=== PATIENT | female | born 1970 | race Caucasian/White ===

== ENCOUNTER 2017-04-30 08:55 | Emergency (ER) | payer OTHER ==
[~2017-04-30] VITALS: Ht 157.5 cm; Wt 61.4 kg
[2017-04-30] MEDS ORDERED: CYCL5TAB PO (09:41)
[2017-04-30] MEDS ORDERED: DETR1TAB4 PO (09:41)
[2017-04-30] MEDS ORDERED: LISI10TA4 PO (09:41)
[2017-04-30] MEDS ORDERED: EFFE150C PO (09:41)
[2017-04-30] MEDS ORDERED: MOBI15TA PO (09:41)
[2017-04-30] MEDS ORDERED: VITA500046 PO (09:41)
[2017-04-30] MEDS ORDERED: MULT1TAB10 PO (09:41)
[2017-04-30] MEDS ORDERED: HYDR-3716 PO (09:41)
[2017-04-30] MEDS ORDERED: TOPA100T12 PO (09:41)
[2017-04-30] MEDS ORDERED: PREG50CA PO (09:41)
--- NOTE | 2017-04-30 10:06 | REP ---
CT Head without contrast HISTORY: Confusion COMPARISON: None There is no intraparenchymal hemorrhage, acute infarct, mass or midline shift. The ventricular system is normal in appearance. There is no extra cerebral collection. There is no fracture. The visualized sinuses are clear. IMPRESSION: There is no intracranial lesion. Signed by Joel Miller MD 04/30/2017 09:57 A
[2017-04-30 10:34] LABS: BASO % 0.1 % (0.0-1.0); EOS % 0.1 % (0.0-3.0); IMMATURE GRANULOCYTE % 0.5 % (0-0); LYMPH % 41.7 % (24.0-44.0); MEAN CORPUSCULAR HEMOGLOBIN 29.7 pg (27.0-33.0); MEAN CORPUSCULAR HGB CONC 33.6 g/dl (32.0-36.5); MEAN CORPUSCULAR VOLUME 88.3 fl (80.0-96.0); MONO # 0.4 10^3/uL (0.0-0.8); MONO % 4.5 % (0.0-5.0); NEUTROPHILS # 5.1 10^3/uL (1.8-7.7); NEUTROPHILS % 53.1 % (36.0-66.0); PLATELET COUNT, AUTOMATED 245 10^3/uL (150-450); WHITE BLOOD COUNT 9.7 10^3/uL (4.0-10.0)
[2017-04-30 10:56] LABS: ANION GAP 7 MEQ/L (8-16); BLOOD UREA NITROGEN 10 MG/DL (7-18); CALCIUM LEVEL 9.4 MG/DL (8.5-10.1); CARBON DIOXIDE LEVEL 24 MEQ/L (21-32); CHLORIDE LEVEL 108 MEQ/L (98-107); CREATININE FOR GFR 0.47 MG/DL (0.55-1.02); GLOMERULAR FILTRATION RATE > 60.0 (>58); GLUCOSE, FASTING 94 MG/DL (70-105); POTASSIUM SERUM 4.5 MEQ/L (3.5-5.1); SODIUM LEVEL 139 MEQ/L (136-145)
[2017-04-30] MEDS ORDERED: TOPA50TA8 PO (12:03)
[2017-04-30 14:10] VITALS: BP 111/63
--- NOTE | 2017-05-01 09:17 | ECGEPIP ---
Stationary ECG Study [facility] - ED Test Date: 2017-04-30 Pat Name: REY REYEZ Department: Room: - Gender: F [employer]: sita : 1970 Requested By: Christopher Ochoa Order Number: [id number] Reading MD: Sveta Farr Measurements Intervals [place] Rate: 89 P: 35 MO: 130 QRS: 82 QRSD: 100 T: 14 QT: 367 QTc: 447 Interpretive Statements SINUS RHYTHM NO PRIOR FOR COMPARISON Electronically Signed On 05-01-2017 9:17:18 EDT by Sveta Farr
== END 2017-04-30 14:11 | disposition home or self-care (01) ==
LOC: M ED 08:55 → EDBD 08:55 → M ED 14:11
DX: R20.2 Paresthesia of skin (principal); T50.905A Adverse effect of unspecified drugs, medicaments and biological substances, initial encounter; I10 Essential (primary) hypertension; F33.9 Major depressive disorder, recurrent, unspecified; F17.210 Nicotine dependence, cigarettes, uncomplicated; Z79.899 Other long term (current) drug therapy

== ENCOUNTER 2018-03-23 23:15 | Emergency (ER) | payer OTHER ==
[2018-03-24] MEDS: NS 1,000 ML IV ×2 (01:00→03:15)
[2018-03-24 01:17] LABS: ANION GAP 7 MEQ/L (8-16); BLOOD UREA NITROGEN 12 MG/DL (7-18); CALCIUM LEVEL 9.5 MG/DL (8.5-10.1); CARBON DIOXIDE LEVEL 29 MEQ/L (21-32); CHLORIDE LEVEL 105 MEQ/L (98-107); CPK CREATINE PHOSPHOKINASE 137 U/L (26-192); CREATININE FOR GFR 0.88 MG/DL (0.55-1.30); GLOMERULAR FILTRATION RATE > 60.0 (>58); GLUCOSE, FASTING 143 MG/DL (70-100); POTASSIUM SERUM 4.1 MEQ/L (3.5-5.1); SODIUM LEVEL 141 MEQ/L (136-145); TROPONIN I < 0.02 NG/ML (< 0.10)
[2018-03-24 01:23] LABS: MB/CK RELATIVE INDEX 2.18 (< OR =4)
[2018-03-24 01:25] LABS: ETHYL ALCOHOL (ETHANOL) < 0.003 % (0.000-0.010)
[2018-03-24 01:37] LABS: BASO # 0.1 10^3/uL (0.0-0.2); BASO % 0.4 % (0.0-1.0); EOS % 0.1 % (0.0-3.0); HEMOGLOBIN 13.8 g/dl (12.0-15.5); IMMATURE GRANULOCYTE % 1.3 % (0-3.0); LYMPH # 4.4 10^3/uL (1.5-4.5); LYMPH % 31.3 % (24.0-44.0); MEAN CORPUSCULAR HEMOGLOBIN 29.3 pg (27.0-33.0); MEAN CORPUSCULAR HGB CONC 32.9 g/dl (32.0-36.5); MEAN CORPUSCULAR VOLUME 89.2 fl (80.0-96.0); MONO # 0.6 10^3/uL (0.0-0.8); MONO % 4.5 % (0.0-5.0); NEUTROPHILS # 8.8 10^3/uL (1.8-7.7); NEUTROPHILS % 62.4 % (36.0-66.0); PLATELET COUNT, AUTOMATED 206 10^3/uL (150-450); RED BLOOD COUNT 4.71 10^6/uL (4.00-5.40); RED CELL DISTRIBUTION WIDTH 12.9 % (11.5-14.5); WHITE BLOOD COUNT 14.1 10^3/uL (4.0-10.0)
[2018-03-24 02:50] LABS: BEDSIDE GLUCOSE 161 MG/DL (70-105)
[2018-03-24 04:02] LABS: AMPHETAMINES LEVEL URINE NEGATIVE (NEGATIVE); BARBITURATES URINE NEGATIVE (NEGATIVE); BENZODIAZEPINES URINE NEGATIVE (NEGATIVE); CANNABINOIDS URINE POSITIVE (NEGATIVE); COCAINE METABOLITE URINE NEGATIVE (NEGATIVE); METHADONE URINE NEGATIVE (NEGATIVE); OPIATES URINE POSITIVE (NEGATIVE); PHENCYCLIDINE URINE NEGATIVE (NEGATIVE)
[2018-03-24 05:10] LABS: LACTIC ACID SEPSIS PROTOCOL 0.5 MMOL/L (0.4-2.0)
== END 2018-03-24 05:54 | disposition home or self-care (01) ==
LOC: M ED 23:15
DX: R55 Syncope and collapse (principal); Z72.0 Tobacco use; Z79.899 Other long term (current) drug therapy; Z88.2 Allergy status to sulfonamides; Z88.8 Allergy status to other drugs, medicaments and biological substances
CPT/HCPCS: 70450

== ENCOUNTER → 2018-03-31 | Outpatient (CLI) | payer OTHER ==
[2018-03-31 08:36] LABS: HEMATOCRIT 42.7 % (36.0-47.0); HEMOGLOBIN 13.9 g/dl (12.0-15.5); MEAN CORPUSCULAR HEMOGLOBIN 29.6 pg (27.0-33.0); MEAN CORPUSCULAR HGB CONC 32.6 g/dl (32.0-36.5); MEAN CORPUSCULAR VOLUME 90.9 fl (80.0-96.0); PLATELET COUNT, AUTOMATED 208 10^3/uL (150-450); RED CELL DISTRIBUTION WIDTH 13.3 % (11.5-14.5); WHITE BLOOD COUNT 8.8 10^3/uL (4.0-10.0)
[2018-03-31 09:07] LABS: ESTIMATED AVERAGE GLUCOSE 120 MG/DL (60-110); HEMOGLOBIN A1c 5.8 %
[2018-03-31 09:27] LABS: ALBUMIN 3.9 GM/DL (3.2-5.2); ALKALINE PHOSPHATASE 75 U/L (45-117); ALT/SGPT 23 U/L (12-78); ANION GAP 8 MEQ/L (8-16); AST/SGOT 14 U/L (7-37); BILIRUBIN,TOTAL 0.2 MG/DL (0.2-1.0); BLOOD UREA NITROGEN 12 MG/DL (7-18); CALCIUM LEVEL 9.3 MG/DL (8.5-10.1); CARBON DIOXIDE LEVEL 28 MEQ/L (21-32); CHLORIDE LEVEL 109 MEQ/L (98-107); CHOLESTEROL LEVEL 241 MG/DL (<200); CHOLESTEROL RISK RATIO 3.825 (<5); CREATININE FOR GFR 0.69 MG/DL (0.55-1.30); GLOMERULAR FILTRATION RATE > 60.0 (>58); GLUCOSE, FASTING 92 MG/DL (70-100); HDL CHOLESTEROL 63 MG/DL (>40); NON-HDL-C 178 MG/DL; SODIUM LEVEL 145 MEQ/L (136-145); TOTAL PROTEIN 6.9 GM/DL (6.4-8.2); TRIGLYCERIDES LEVEL 95 MG/DL (<150)
[2018-03-31 09:32] LABS: TOTAL 25(OH) VITAMIN D 58.4 NG/ML (30.0-100.0)
== END ==
LOC: M RAD 08:14
DX: R53.83 Other fatigue (principal); D64.9 Anemia, unspecified; R55 Syncope and collapse; R51 Headache
CPT/HCPCS: 70450

== ENCOUNTER 2018-12-26 10:37 | Observation (INO) | payer OTHER ==
[~2018-12-26] VITALS: Ht 154.9 cm; Wt 59.1 kg
[~2018-12-26 10:37] MED LIST: CYCL5TAB PO; DETR1TAB5 PO; EFFE150C2 PO; HYDR-3716 PO; LISI10TA4 PO; MOBI15TA PO; MULT1TAB10 PO; PREG50CA PO; TOPA100T12 PO; TOPA50TA8 PO; VITA500046 PO
[2018-12-26] MEDS ORDERED: FENT12DI8 TD (10:52)
[2018-12-26] MEDS ORDERED: AMOX500C PO (10:52)
[2018-12-26] MEDS ORDERED: BACL10TA2 PO (10:52)
[2018-12-26] MEDS ORDERED: ALAV10TA4 (10:52)
[2018-12-26] MEDS ORDERED: ISOVUE-370 76% 100ML VIAL (Q9967) As Ordered ONE (11:41)
[2018-12-26 11:43] LABS: HEMATOCRIT 41.1 % (36.0-47.0); HEMOGLOBIN 13.5 g/dl (12.0-15.5); MEAN CORPUSCULAR HEMOGLOBIN 29.6 pg (27.0-33.0); MEAN CORPUSCULAR HGB CONC 32.8 g/dl (32.0-36.5); MEAN CORPUSCULAR VOLUME 90.1 fl (80.0-96.0); PLATELET COUNT, AUTOMATED 222 10^3/uL (150-450); RED BLOOD COUNT 4.56 10^6/uL (4.00-5.40); WHITE BLOOD COUNT 14.2 10^3/uL (4.0-10.0)
[2018-12-26 12:11] LABS: ERYTHROCYTE SEDIMENTATION RATE 42 mm/hr (0-20)
[2018-12-26] MEDS ORDERED: NS 1,000 ML IV ONE (12:15)
[2018-12-26] MEDS ORDERED: AMPICILLIN SOD/SULBACTAM SOD 3 GM in D5W MINI-BAG PLUS 100 ML IV STA (12:35)
--- NOTE | 2018-12-26 12:44 | REP ---
CT NECK WITH CONTRAST: HISTORY: Rule out abscess. CONTRAST: Isovue-370, 75 mL There is soft tissue thickening along the buccal surface of the right maxilla and body of the right mandible. This is consistent with a phlegmon. There is thickening of the right platysma muscle. Stranding is present in the overlying subcutaneous tissue and in the right submandibular space. These findings are consistent with edema. The naso- and hypopharynx, larynx and subglottic trachea are normal in appearance. The salivary glands are normal in size and density. A 7 mm hypodensity is present in the right thyroid lobe. This most likely represents a cyst. The left thyroid lobe is normal in size and density. Small lymph nodes less than 1 cm in size are present in the internal jugular chains, posterior triangles, submandibular and submental areas. Atherosclerotic calcification is present at the left carotid bifurcation. The patient is status post C3 to C7 anterior and posterior spinal fusion. Metal hardware and bone graft material are present. Degenerative change is present in the cervical spine. There is no subluxation. The lung apices are clear. The visualized sinuses are clear. IMPRESSION: 1. There is a phlegmon along the buccal surface of the right maxilla and body of the right mandible. 2. The patient is status post C3 to C7 anterior and posterior spinal fusion. There is anatomic alignment. Electronically Signed by Joel Miller MD 12/26/2018 12:52 P
[2018-12-26] MEDS ORDERED: fentaNYL 12 MCG/HR PATCH TOP ONE (13:00)
[2018-12-26] MEDS ORDERED: POTASSIUM CHLORIDE 10 MEQ SR TABLET PO ONE (13:00)
[2018-12-26] MEDS ORDERED: LORA-622 PO (13:13)
[2018-12-26] MEDS ORDERED: LISI-542 PO (13:13)
[2018-12-26] MEDS ORDERED: MULT-40 PO (13:13)
[2018-12-26] MEDS ORDERED: D 50CAP2 PO (13:13)
[2018-12-26] MEDS ORDERED: TOPI100T9 PO (13:13)
[2018-12-26] MEDS: KCL 20MEQ IN 0.45NS 1000ML 1,000 ML IV SCH ×2 (13:38→23:46)
--- NOTE | 2018-12-26 13:43 | HPE ---
DATE OF ADMISSION: 12/26/2018 PRIMARY CARE PROVIDER: Dr. Angelina Bernal CHIEF COMPLAINT: Right lower dental abscess. HISTORY: Fely Roque was sent to the emergency room with a dental abscess. CT of the head and neck showed a phlegmon on the buccal surface of right maxilla and body of the right mandible. Dr. Schumacher of oral surgery plans on surgical intervention today. He wanted the patient admitted to the hospitalist service on IV antibiotics pending his surgery. PAST MEDICAL HISTORY: The patient's past medical history is significant for: 1. Chronic pain problems in neck and low back. She is on chronic opiate therapy with fentanyl for this. 2. She has a history of hypertension. 3. Arthritis. 4. Depression. 5. Overactive bladder. MEDICATIONS: - amoxicillin for dental infection - Baclofen - vitamin D 5000 units daily - fentanyl 12 mcg patch every 3 days - Lisinopril 10 mg daily - Mobic 15 mg daily - Detrol 2 mg twice a day - Topamax 50 mg twice a day - Effexor XR 150 mg twice a day ALLERGIES: GABAPENTIN, SULFA. REVIEW OF SYSTEMS: No epistaxis, rectal bleeding, or urinary bleeding. No chest pain, shortness of breath, palpitations, sputum production. FAMILY HISTORY: Noncontributory. SOCIAL HISTORY: Nonsmoker. PHYSICAL EXAMINATION: VITAL SIGNS: Per flow sheet. GENERAL APPEARANCE: Alert, conversant and in no distress. Right side of the face is swollen and tender. Pupils are equal and reactive to light. Pharynx is benign. Airway is patent. LUNGS: Clear. HEART: Without murmur. ABDOMEN: Soft, nontender. No masses. EXTREMITIES: No peripheral edema. IMPRESSION: 1. Dental abscess. Admit the patient to observation bed. Consult Dr. Schumacher of oral surgery. Per his recommendation, the patient will be started on Unasyn. 2. Hypokalemia. Supplemental potassium both orally and intravenously has been ordered. 3. Depression. Continue current medications to avoid SNRI withdrawal syndrome. 4. Chronic back pain. Continue her fentanyl patch. 5. Hypertension. Hold her Lisinopril pending surgery. This can be restarted upon discharge. She will be followed by the hospitalist during this hospitalization.
[2018-12-26] MEDS: TOPIRAMATE (TopAMAX) 25 MG TAB PO SCH ×2 (14:03→21:09)
--- NOTE | 2018-12-26 14:05 | REP ---
Clinical: Pain and swelling. Technique: Two Panorex views. Findings: Osseous structures, residual dentition, and visualized surrounding soft tissues are grossly unremarkable. Impression: No obvious acute abnormality. Electronically Signed by Hunter Lloyd MD 12/26/2018 01:57 P
[2018-12-26 14:25] VITALS: BP 149/90
[2018-12-26] MEDS: ACETAMINOPHEN TAB 650MG DOSE (2X325MG) PO PRN (21:08)
[2018-12-26] MEDS: VENLAFAXINE **XR** 75MG CAPSULE PO SCH (21:09)
[2018-12-26] MEDS: AMPICILLIN SOD/SULBACTAM SOD 3 GM in D5W MINI-BAG PLUS 100 ML IV SCH (21:09)
[2018-12-26 22:00] VITALS: BP 107/67
[2018-12-27] VITALS (7 sets, daily range): BP systolic 108–148; BP diastolic 50–88
[2018-12-27] MEDS: AMPICILLIN SOD/SULBACTAM SOD 3 GM in D5W MINI-BAG PLUS 100 ML IV SCH ×4 (02:29→20:29)
[2018-12-27 06:34] LABS: BASO % 0.2 % (0.0-1.0); HEMATOCRIT 34.6 % (36.0-47.0); LYMPH # 3.9 10^3/uL (1.5-4.5); MEAN CORPUSCULAR HEMOGLOBIN 29.4 pg (27.0-33.0); MEAN CORPUSCULAR HGB CONC 32.1 g/dl (32.0-36.5); MEAN CORPUSCULAR VOLUME 91.5 fl (80.0-96.0); MONO # 0.8 10^3/uL (0.0-0.8); MONO % 7.9 % (0.0-5.0); NEUTROPHILS # 5.5 10^3/uL (1.8-7.7); NEUTROPHILS % 53.2 % (36.0-66.0); PLATELET COUNT, AUTOMATED 197 10^3/uL (150-450); RED BLOOD COUNT 3.78 10^6/uL (4.00-5.40); WHITE BLOOD COUNT 10.3 10^3/uL (4.0-10.0)
[2018-12-27 06:41] LABS: HEMOGLOBIN 11.1 g/dl (12.0-15.5)
[2018-12-27 06:54] LABS: BLOOD UREA NITROGEN 8 MG/DL (7-18); CALCIUM LEVEL 8.3 MG/DL (8.5-10.1); CARBON DIOXIDE LEVEL 27 MEQ/L (21-32); CHLORIDE LEVEL 112 MEQ/L (98-107); CREATININE FOR GFR 0.53 MG/DL (0.55-1.30); GLOMERULAR FILTRATION RATE > 60.0 (>58); GLUCOSE, FASTING 98 MG/DL (70-100); POTASSIUM SERUM 4.5 MEQ/L (3.5-5.1); SODIUM LEVEL 142 MEQ/L (136-145)
[2018-12-27] MEDS ORDERED: FENTANYL REMOVAL DOCUMENTATION MISC XX ONE (08:30)
[2018-12-27] MEDS ORDERED: LIDOCAINE 2% W/ EPINEPHRINE 1.7 ML DENTAL INJ As Ordered ONE (08:49)
[2018-12-27] MEDS: TOPIRAMATE (TopAMAX) 25 MG TAB PO SCH ×2 (09:00→20:29)
[2018-12-27] MEDS: VENLAFAXINE **XR** 75MG CAPSULE PO SCH ×2 (09:00→20:29)
[2018-12-27] MEDS: LISINOPRIL 10 MG TAB PO SCH (09:00)
[2018-12-27] MEDS: KCL 20MEQ IN 0.45NS 1000ML 1,000 ML IV SCH ×2 (09:15→16:37)
[2018-12-27] MEDS ORDERED: dexameTHASONE 4 MG/ML 1ML VIAL (J1100) As Ordered ONE (11:11)
[2018-12-27] MEDS ORDERED: PROPOFOL 200 MG/20 ML VIAL As Ordered ONE ×2 (11:11→11:43)
[2018-12-27] MEDS ORDERED: LIDOCAINE 2% INJ 100 MG/5 ML SDV (FOR ANES.) As Ordered ONE (11:11)
[2018-12-27] MEDS ORDERED: fentaNYL 250 MCG/5 ML INJECTION (J3010) As Ordered ONE (11:11)
[2018-12-27] MEDS ORDERED: ONDANSETRON 4MG/2ML VIAL (J2405) As Ordered ONE (11:11)
[2018-12-27] MEDS ORDERED: SUGAMMADEX SODIUM 500 MG/5 ML VIAL (BRIDION) As Ordered ONE (11:11)
[2018-12-27] MEDS ORDERED: MIDAZOLAM INJ 2 MG/2 ML VIAL (J2250) As Ordered ONE (11:11)
[2018-12-27] MEDS ORDERED: LR 1,000 ML IV SCH (12:00)
[2018-12-27] MEDS ORDERED: ONDANSETRON 4MG/2ML VIAL (J2405) IV PRN (12:00)
[2018-12-27] MEDS ORDERED: fentaNYL 100 MCG/2 ML INJECTION (J3010) IV PRN (12:00)
[2018-12-27] MEDS ORDERED: PERCOCET 5MG/325MG TAB PO PRN (12:00)
[2018-12-27] MEDS ORDERED: HYDROMORPHONE HCL 0.5 MG/ 0.5 ML SYRINGE (J1170 PER 1) IV PRN (12:00)
[2018-12-27] MEDS ORDERED: ROCURONIUM BROMIDE 50 MG/5 ML VIAL As Ordered ONE (12:23)
[2018-12-27] MEDS ORDERED: FENTANYL REMOVAL DOCUMENTATION MISC XX SCH ×2 (14:15→16:00)
[2018-12-27] MEDS ORDERED: KETOROLAC TROMETHAMINE 10 MG TAB PO PRN (14:15)
[2018-12-27] MEDS: traMADol 50 MG TAB PO PRN ×2 (15:05→23:30)
[2018-12-27] MEDS ORDERED: fentaNYL 12 MCG/HR PATCH TOP SCH (16:00)
--- NOTE | 2018-12-27 17:30 | IPNPDOC ---
Date Seen The patient was seen on 12/27/18. Progress Note SUBJECTIVE: Patient reports feeling better with improving swelling and talking better. Afebrile overnight. WBC from 14.2 to 10.3 today. OBJECTIVE PHYSICAL EXAMINATION: VITAL SIGNS: Please see below. General: No acute distress, Alert Eyes: Normal sclera, EOMI, POLI HENT: R. cheek/face swollen, tender on palpation. Cardiovascular: Normal rate, normal rhythm. No murmurs appreciated. Pulmonary: Clear to auscultation b/l, no wheezing GI: Soft, nontender, nondistended Skin: Warm and dry Neuro: CN grossly intact. No focal deficits. Strengths equal b/l. Psych: oriented x 3 LABORATORY DATA, IMAGING STUDIES, MICROBIOLOGY: Please see below. ASSESSMENT AND PLAN: 1. Dental abscess - s/p surgery by Oral surgery Dr. Schumacher. - c/w Unasyn. - Transition to PO Abx on discharge. - leukocytosis improve. Plan for discharge in AM. - Pain control 2. Depression - c/w home meds 3. HTN - Resume home meds. DVT ppx: DISPOSITION: Home in AM if improves. VS, I&O, 24H, Fishbone Vital Signs/I&O Vital Signs Date Time Temp Pulse Resp B/P (MAP) Pulse Ox O2 Delivery O2 Flow Rate FiO2 12/27/18 16:37 18 12/27/18 14:00 97.7 92 148/86 (106) 97 12/27/18 13:00 2.0 12/26/18 10:38 Room Air I&O- Last 24 Hours up to 6 AM 12/27/18 06:00 Intake Total 3110 ml Output Total 0 ml Balance 3110 ml Laboratory Data 24H LABS Laboratory Tests 2 12/27/18 05:50: Immature Granulocyte % (Auto) 0.7, White Blood Count 10.3H, Red Blood Count 3.78L, Hemoglobin 11.1#L, Hematocrit 34.6L, Mean Corpuscular Volume 91.5, Mean Corpuscular Hemoglobin 29.4, Mean Corpuscular Hemoglobin Concent 32.1, Red Cell Distribution Width 13.2, Platelet Count 197, Neutrophils (%) (Auto) 53.2, Lymphocytes (%) (Auto) 38.0, Monocytes (%) (Auto) 7.9H, Eosinophils (%) (Auto) 0.0, Basophils (%) (Auto) 0.2, Neutrophils # (Auto) 5.5, Lymphocytes # (Auto) 3.9, Monocytes # (Auto) 0.8, Eosinophils # (Auto) 0.0, Basophils # (Auto) 0.0, Nucleated Red Blood Cells % (auto) 0.0, Anion Gap 3L, Glomerular Filtration Rate > 60.0, Blood Urea Nitrogen 8, Creatinine 0.53L, Sodium Level 142, Potassium Level 4.5, Chloride Level 112H, Carbon Dioxide Level 27, Calcium Level 8.3L CBC/BMP Laboratory Tests 12/27/18 05:50 Red Blood Count 3.78 L, Mean Corpuscular Volume 91.5, Mean Corpuscular Hemoglobin 29.4, Mean Corpuscular Hemoglobin Concent 32.1, Red Cell Distribution Width 13.2, Neutrophils (%) (Auto) 53.2, Lymphocytes (%) (Auto) 38.0, Monocytes (%) (Auto) 7.9 H, Eosinophils (%) (Auto) 0.0, Basophils (%) (Auto) 0.2, Neutrophils # (Auto) 5.5, Lymphocytes # (Auto) 3.9, Monocytes # (Auto) 0.8, Eosinophils # (Auto) 0.0, Basophils # (Auto) 0.0, Calcium Level 8.3 L SULAIMAN MURRAY MD December 27, 2018 17:30
[2018-12-27] MEDS: HEPARIN SOD (PORCINE) 5000 UNITS/ML VIAL SQ SCH (22:21)
[2018-12-28 02:00] VITALS: BP 142/88
[2018-12-28] MEDS: AMPICILLIN SOD/SULBACTAM SOD 3 GM in D5W MINI-BAG PLUS 100 ML IV SCH (02:18)
[2018-12-28] MEDS: ACETAMINOPHEN TAB 650MG DOSE (2X325MG) PO PRN (02:24)
[2018-12-28 06:00] VITALS: BP 139/86
[2018-12-28] MEDS: HEPARIN SOD (PORCINE) 5000 UNITS/ML VIAL SQ SCH (06:00)
[2018-12-28 06:58] LABS: HEMATOCRIT 32.2 % (36.0-47.0); HEMOGLOBIN 10.5 g/dl (12.0-15.5); MEAN CORPUSCULAR HEMOGLOBIN 29.3 pg (27.0-33.0); MEAN CORPUSCULAR HGB CONC 32.6 g/dl (32.0-36.5); MEAN CORPUSCULAR VOLUME 89.9 fl (80.0-96.0); PLATELET COUNT, AUTOMATED 213 10^3/uL (150-450); RED BLOOD COUNT 3.58 10^6/uL (4.00-5.40)
[2018-12-28 07:05] LABS: WHITE BLOOD COUNT 12.5 10^3/uL (4.0-10.0)
[2018-12-28 07:29] LABS: BLOOD UREA NITROGEN 4 MG/DL (7-18); CALCIUM LEVEL 8.7 MG/DL (8.5-10.1); CARBON DIOXIDE LEVEL 27 MEQ/L (21-32); CHLORIDE LEVEL 110 MEQ/L (98-107); CREATININE FOR GFR 0.51 MG/DL (0.55-1.30); GLOMERULAR FILTRATION RATE > 60.0 (>58); GLUCOSE, FASTING 93 MG/DL (70-100); POTASSIUM SERUM 4.1 MEQ/L (3.5-5.1); SODIUM LEVEL 142 MEQ/L (136-145)
[2018-12-28 07:50] LABS: ATYPICAL LYMPH 1 % (0-5); BASOPHILS 1 % (0-4); LYMPHOCYTES 41 % (16-52); MONOCYTES 3 % (0-8); NEUTROPHILS 54 % (35-75); PLATELET ESTIMATE NORMAL (NORMAL)
[2018-12-28] MEDS: TOPIRAMATE (TopAMAX) 25 MG TAB PO SCH (09:07)
[2018-12-28 09:08] VITALS: BP 139/86
[2018-12-28] MEDS: VENLAFAXINE **XR** 75MG CAPSULE PO SCH (09:08)
[2018-12-28] MEDS: LISINOPRIL 10 MG TAB PO SCH (09:08)
--- NOTE | 2018-12-28 10:32 | RO ---
DATE OF PROCEDURE: 12/27/2018 DATE OF ADMISSION: December 26, 2018 CONSULTING PHYSICIAN/SURGEON: Melquiades fontaine D.M.D., MD PREOPERATIVE DIAGNOSIS: Right buccal space abscess / infection and right submandibular cellulitis, abscess tooth #30, cracked tooth #31. POSTOPERATIVE DIAGNOSIS: Right buccal space abscess / infection and right submandibular cellulitis, abscess tooth #30, cracked tooth #31. PROCEDURE PERFORMED: Incision and drainage right buccal space abscess and surgical extraction of teeth number 30 and 31 ANESTHESIA: General endotracheal anesthesia via oral ray. SPECIMEN: Teeth for gross only. INDICATIONS FOR PROCEDURE: Fely is a pleasant 48-year-old female who reported to the ER today with worsening tooth a history of right facial swelling, fevers, dysphasia. She reports that she went to her dentist on Saturday with a toothache. The dentist did not remove for tooth, instead placed her on an antibiotic and advised to return in 10 days. The following day the swelling appeared followed by fevers and dysphagia on Saturday morning she then self-referred herself to the emergency room and that is when the ER personnel called me for assistance and management. On clinical exam, she had obvious right facial / buccal space swelling that is indurated and erythematous with tenderness to palpation. The tenderness to palpation and slight edema does extend to the right submandibular area and further clinical examination reveals an incisal tooth opening of about 40 mm. She does have a crown on tooth #30 that is gross facial recurrent caries and a large alloy on tooth #31. Both teeth are very tender to palpation. There is significant vestibular edema and tenderness to palpation with exudate/puruluent material that is expressed from the sulcus of tooth number 30. The floor of the mouth is within normal limits. It is not elevated and does not have any tenderness to palpation. Uvula is midline and there is no airway deviation. She does have a white count of 14,000 on admission. She does have it the fevers for the last 2 days of 99.5 and she does have a CT scan with contrast that was performed and are reviewed which shows fluid collection along the lateral aspect of the mandibular body with no airway deviation and no sublingual or submandibular fluid noted. The risks, benefits and alternatives were given to the patient. She will need to have an incision and drainage and extraction of tooth #30. She tells me that she also wants tooth #31 removed as it has been symptomatic and she does not want to have the tooth worked on her saved. Informed consent was reviewed and signed in the history and physical is in the patient's chart. DESCRIPTION OF PROCEDURE: Any last minute questions were addressed. At this point the patient was taken back to the operating room. She was laid supine on the operating room table. Ulnar nerve protectors were placed. Noninvasive cardiac monitors were applied. At that point the patient was intubated and underwent general anesthesia and was intubated with an oral ray. She was then prepped and draped in usual sterile fashion. A time-out procedure was performed to identify the patient, the procedure and any other precautions. She was given preoperative antibiotics 3 grams of Unisom IV. At this point a moist throat pack was inserted in the patient's oropharynx followed by the administration of four carpules of 2% lidocaine with 1:100,000 epinephrine as local infiltration and blocks. A full-thickness flap was initiated at the distal of 31, working in the sulcus medially all the way to the mesial of tooth #27 and was also connected to a buccal hockey stick extension distally behind 31, the flap was fully reflected all the way down to the posterior border of the mandible taking care to expose the mental nerve as well which was fully intact and noted at the time of the procedure an abundant amount of necrotic and granulation tissue was noted and was evacuated as well as purulent material all of this as I mentioned was evacuated and curetted out and copious irrigation used. At this point a small amount of buccal bone was removed from sites number 30 and 31 and the teeth were luxated and delivered with ease without any incident. The apices of the sockets were curetted and irrigated with an abundant amount of necrotic tissue that was curetted from the apices of number 31. At this point a small alveoloplasty was performed to remove any sharp bony edges. Copious irrigation into the sockets and the flaps were closed with 3-0 chromic sutures. At this point in the oral cavity was irrigated and suctioned the throat pack was removed. The patient was awakened from general anesthesia and taken back to the PACU. COMPLICATIONS: None to mention at time of surgery. ESTIMATED BLOOD LOSS: 5 mL. DRAINS: There were no drains placed.
--- NOTE | 2018-12-28 13:54 | DS.PDOC ---
Discharge Summary General Date of Admission December 26, 2018 at 12:57 Date of Discharge 12/28/2018 Discharge Summary DISCHARGE DIAGNOSIS:Dental abscess SECONDARY DIAGNOSIS: 1.Overactive bladder 2. Hypertension 3. Arthritis 4. Depression PROCEDURES PERFORMED DURING STAY: Tooth extraction 2. CONSULTANTS: Dr. Suazo oral surgery HOSPITAL COURSE: Patient is a 48-year-old female who presented with right mandibular facial swelling and tenderness. She was found to have dental abscess she was seen by oral surgery due to dental extractions with good improvement in her symptoms she was on the hospitalist service provided with IV antibiotics while hospitalized. Following extraction antibiotics she had prompt improvement in her symptoms at this time she is medically stable for discharge home and returning to her functional baseline. DISCHARGE MEDICATIONS: Please see below. ALLERGIES: Please see below. SUBJECTIVE: Patient tells me she is feeling much better she is able to open and close her mouth and eat more regular food otherwise patient denies chest pain, shortness, breath, nausea, vomiting, fevers, chills OBJECTIVE: PHYSICAL EXAMINATION: VITAL SIGNS: Please see below. GENERAL: Pleasant middle-age woman sitting up in bed awake alert oriented speaking in complete sentences no acute distress HEENT: Moist mucous membranes no elevation and CVP her right mandibular area is less swollen and less tender and no significant erythema, inside of her oral cavity reveals no ongoing bleeding extraction sites are clean and dry CARDIOVASCULAR: S1 S2 regular no additional heart sounds appreciated. RESPIRATORY: Clear to auscultation bilaterally. ABDOMINAL: Bowel sounds present abdomen soft and nontender EXTREMITIES: No clubbing, cyanosis, edema NEUROLOGICAL: Spontaneously moves all 4 extremities cranial 2 through 12 grossly intact, no gross focal deficits appreciated PSYCHOLOGICAL: Appropriate LABORATORY DATA, MICROBIOLOGY: Please see below. IMAGING STUDIES: Neck CT:1. There is a phlegmon along the buccal surface of the right maxilla and body of the right mandible. 2. The patient is status post C3 to C7 anterior and posterior spinal fusion. There is anatomic alignment. Dental x-ray:No obvious acute abnormality. DVT prophylaxis ordered: Heparin every 8 ASSESSMENT AND PLAN: This is a 48-year-old female with dental abscess. PROBLEMS: 1. Dental abscess: Status post extraction. An antibiotic she is doing much better at this time. He is being discharged on Augmentin 875 mg by mouth twice a day for 10 days she was also provided with Lortab 5 quantity 20 as well as Peridex mouthwash. These scripts were called directly to the pharmacy by oral surgery. 2. Hypertension: Continue lisinopril. 3. Seasonal allergies: Continue with loratadine. 4. Chronic pain: Continue with meloxicam, fentanyl and pain medication as outlined above 5. Depression: Continue with topiramate and venlafaxine DISPOSITION: Home. DISCHARGE CONDITION: Improved and Stable. FOLLOW UP: Oral surgery within 2 weeks PCP within one week ACTIVITY: As prior to admission. DIET: Soft TIME SPENT ON DISCHARGE: 35 minutes Vital Signs/I&Os Vital Signs Date Time Temp Pulse Resp B/P (MAP) Pulse Ox O2 Delivery O2 Flow Rate FiO2 12/28/18 09:08 139/86 12/28/18 06:00 98.6 79 18 99 12/27/18 13:00 2.0 12/26/18 10:38 Room Air l I&O- Last 24 Hours up to 6 AM 12/28/18 05:59 Intake Total 3180 ml Balance 3180 ml Laboratory Data Labs 24H Laboratory Tests 2 12/28/18 06:33: White Blood Count 12.5H, Red Blood Count 3.58L, Hemoglobin 10.5L, Hematocrit 32.2L, Mean Corpuscular Volume 89.9, Mean Corpuscular Hemoglobin 29.3, Mean Corpuscular Hemoglobin Concent 32.6, Red Cell Distribution Width 12.8, Platelet Count 213, Lymphocytes # (Auto) , Nucleated Red Blood Cells % (auto) 0.0, Neutrophils 54, Lymphocytes (Manual) 41, Monocytes (Manual) 3, Basophils (Manual) 1, Atypical Lymphocytes 1, Platelet Estimate NORMAL 12/28/18 06:34: Anion Gap 5L, Glomerular Filtration Rate > 60.0, Blood Urea Nitrogen 4L, Creatinine 0.51L, Sodium Level 142, Potassium Level 4.1, Chloride Level 110H, Carbon Dioxide Level 27, Calcium Level 8.7 CBC/BMP Laboratory Tests 12/28/18 06:33 Red Blood Count 3.58 L, Mean Corpuscular Volume 89.9, Mean Corpuscular Hemoglobin 29.3, Mean Corpuscular Hemoglobin Concent 32.6, Red Cell Distribution Width 12.8, Lymphocytes # (Auto) 12/28/18 06:34 Calcium Level 8.7 Discharge Medications Scheduled Baclofen (Baclofen) 10 Mg Tablet, 10 MG PO BID, (Reported) Cholecalciferol (Vitamin D3) (Vitamin D3) 5,000 Unit Capsule, 5,000 UNIT PO DAILY, (Reported) Fentanyl (Fentanyl) 12 Mcg Patch.td72, 12 MCG TD Q3RD, (Reported) NOT PATCH ON CURRENTLY, NEW PATCH TO BE APPLIED TODAY 12/26/18 Lisinopril (Lisinopril) 10 Mg Tab, 10 MG PO QAM, (Reported) Lisinopril (Lisinopril) 5 Mg Tablet, 5 MG PO QHS, (Reported) Loratadine (Loratadine) 10 Mg Tablet, 10 MG PO DAILY, (Reported) Meloxicam (Mobic) 15 Mg Tab, 15 MG PO DAILY, (Reported) Multivitamin (Multivitamins) 1 Each Tablet, 1 TAB PO DAILY, (Reported) Tolterodine Tartrate (Detrol) 2 Mg Tab, 2 MG PO BID, (Reported) Topiramate (Topiramate) 100 Mg Tablet, 100 MG PO BID, (Reported) Venlafaxine HCl (Effexor Xr) 150 Mg Cap, 150 MG PO BID, (Reported) Allergies Coded Allergies: Sulfa (Sulfonamide Antibiotics) (Verified Allergy, Intermediate, hives, 12/26/18) gabapentin (Verified Adverse Reaction, Intermediate, DROWSINESS, 12/26/18) codeine (Verified Adverse Reaction, Unknown, NAUSEA, 12/26/18) RADHA LIVINGSTON MD December 28, 2018 13:54
[2018-12-29] MEDS ORDERED: fentaNYL 12 MCG/HR PATCH TOP SCH (12:00)
== END 2018-12-28 11:40 | disposition home or self-care (01) ==
LOC: M ED 10:37 → M ED INP 12:57 → M MS5PR 14:20
PROVIDERS: ADMIT Family Medicine; ATTEND General Practice
DX: K04.7 Periapical abscess without sinus (principal); K12.2 Cellulitis and abscess of mouth; N32.81 Overactive bladder; I10 Essential (primary) hypertension; M19.90 Unspecified osteoarthritis, unspecified site; F32.9 Major depressive disorder, single episode, unspecified; F17.210 Nicotine dependence, cigarettes, uncomplicated; G89.29 Other chronic pain; Z79.899 Other long term (current) drug therapy; Z88.2 Allergy status to sulfonamides; Z88.8 Allergy status to other drugs, medicaments and biological substances
CPT/HCPCS: 36415; 70355; 70491; 80047; 80048; 85025; 85027; 85652; 86140; 88300; 96361; 96374; 96376; 99284; D7210; D7510; D9223; J1100; J2250; J2405; J3010; Q9967

== ENCOUNTER → 2019-04-01 | Outpatient (REF) ==
[~2019-04-01] MED LIST changes: +ALAV10TA4; +AMOX500C PO; +BACL10TA2 PO; +D 50CAP2 PO; +FENT12DI8 TD; +LISI-542 PO; +LORA-622 PO; +MULT-40 PO; +TOPI100T9 PO
--- NOTE | 2019-04-02 08:05 | REP ---
Clinical: Pain. Technique: AP, lateral, coned-down views of the lumbosacral spine. Findings: Alignment and lordosis maintained. No acute fracture / compression injury or subluxation. Early advanced degenerative changes at L5-S1 includes endplate sclerosis with near complete disc space obliteration as well as marginal spurring and possible chronic spondylolysis with hypertrophic facet changes. Impression: Focal advanced degenerative disc disease at L5-S1. Electronically Signed by Hunter Lloyd MD 04/02/2019 07:57 A
== END ==
LOC: M SMT 14:25
PROVIDERS: ATTEND Internal Medicine
DX: M51.36 Other intervertebral disc degeneration, lumbar region (principal)

== ENCOUNTER → 2019-05-25 | Outpatient (CLI) | payer OTHER ==
[2019-05-25 12:39] LABS: HEMATOCRIT 42.1 % (36.0-47.0); HEMOGLOBIN 13.6 g/dl (12.0-15.5); MEAN CORPUSCULAR HGB CONC 32.3 g/dl (32.0-36.5); MEAN CORPUSCULAR VOLUME 92.7 fl (80.0-96.0); PLATELET COUNT, AUTOMATED 225 10^3/uL (150-450); RED BLOOD COUNT 4.54 10^6/uL (4.00-5.40)
[2019-05-25 13:08] LABS: ERYTHROCYTE SEDIMENTATION RATE 10 mm/hr (0-20)
[2019-05-25 13:15] LABS: ALBUMIN 3.9 GM/DL (3.2-5.2); ALT/SGPT 31 U/L (12-78); BILIRUBIN,TOTAL 0.2 MG/DL (0.2-1.0); BLOOD UREA NITROGEN 20 MG/DL (7-18); CALCIUM LEVEL 8.9 MG/DL (8.5-10.1); CARBON DIOXIDE LEVEL 26 MEQ/L (21-32); CHLORIDE LEVEL 108 MEQ/L (98-107); CREATININE FOR GFR 0.72 MG/DL (0.55-1.30); GLOMERULAR FILTRATION RATE > 60.0 (>58); GLUCOSE, FASTING 87 MG/DL (70-100); POTASSIUM SERUM 4.3 MEQ/L (3.5-5.1); RHEUMATOID FACTOR QUANT < 10.0 IU/ML (<15.0); SODIUM LEVEL 140 MEQ/L (136-145); THYROID STIMULATING HORMONE 0.968 uIU/ML (0.358-3.740); TOTAL PROTEIN 6.9 GM/DL (6.4-8.2); URIC ACID 3.8 MG/DL (2.6-6.0)
[2019-05-25 13:21] LABS: HEMOGLOBIN A1c 5.7 %
[2019-05-27 14:07] LABS: Lyme Disease IgG Ab 18 kDa Ban Absent (.); Lyme Disease IgG Ab 23 kDa Ban Absent (.); Lyme Disease IgG Ab 28 kDa Ban Absent (.); Lyme Disease IgG Ab 30 kDa Ban Absent (.); Lyme Disease IgG Ab 39 kDa Ban Absent (.); Lyme Disease IgG Ab 41 kDa Ban Absent (.); Lyme Disease IgG Ab 45 kDa Ban Absent (.); Lyme Disease IgG Ab 58 kDa Ban Absent (.); Lyme Disease IgG Ab 66 kDa Ban Absent (.); Lyme Disease IgG Ab 93 kDa Ban Absent (.); Lyme Disease IgG West Blot Int Negative (.); Lyme Disease IgG/IgM Antibodie 0.98 ISR (0.00-0.90); Lyme Disease IgM Ab 23 kDa Ban Present (.); Lyme Disease IgM Ab 39 kDa Ban Absent (.); Lyme Disease IgM Ab 41 kDa Ban Absent (.); Lyme Disease IgM Ab Quantitati 2.65 index (0.00-0.79); Lyme Disease IgM West Blot Int Negative (.)
== END ==
LOC: M LAB 11:47
PROVIDERS: ATTEND Family Medicine
DX: M06.9 Rheumatoid arthritis, unspecified (principal)

== ENCOUNTER → 2019-07-20 | Outpatient (REF) | payer OTHER | LOC: M LABDRWAD 11:59 | PROVIDERS: ATTEND Internal Medicine Rheumatology | DX: M15.9 Polyosteoarthritis, unspecified (principal) ==

== ENCOUNTER → 2019-07-20 | Outpatient (CLI) | payer OTHER ==
--- NOTE | 2019-07-20 11:06 | REP ---
BILATERAL HAND SERIES: Bilateral hand series is performed with four views obtained. No acute fracture or dislocation is seen. Joint spaces appear normal without significant arthritic change bilaterally. No bone lesions are seen. IMPRESSION: Negative bilateral hand series. Electronically Signed by Marbin Arroyo MD 07/20/2019 04:22 P
== END ==
LOC: M ADAMS 09:56
PROVIDERS: ATTEND Internal Medicine Rheumatology
DX: M19.90 Unspecified osteoarthritis, unspecified site (principal)

== ENCOUNTER → 2022-08-14 | Outpatient (CLI) | payer MEDICARE, OTHER ==
[~2022-08-14] MED LIST changes: -LISI-542 PO; +LISI10TA22 PO; -LISI10TA4 PO; +LISI5TAB11 PO
[2022-08-14 09:20] LABS: HEMATOCRIT 40.6 % (36.0-47.0); MEAN CORPUSCULAR HEMOGLOBIN 29.6 pg (27.0-33.0); MEAN CORPUSCULAR VOLUME 92.5 fl (80.0-96.0); PLATELET COUNT, AUTOMATED 248 10^3/uL (150-450); RED BLOOD COUNT 4.39 10^6/uL (4.00-5.40); WHITE BLOOD COUNT 8.6 10^3/uL (4.0-10.0)
[2022-08-14 09:53] LABS: ALKALINE PHOSPHATASE 60 U/L (46-116); ALT/SGPT 18 U/L (7.0-40); AST/SGOT 15 U/L (<34); BILIRUBIN,TOTAL 0.2 MG/DL (0.3-1.2); BLOOD UREA NITROGEN 20 MG/DL (9-23); CALCIUM LEVEL 9.5 MG/DL (8.5-10.1); CARBON DIOXIDE LEVEL 28 MMOL/L (20-31); CHLORIDE LEVEL 106 MMOL/L (98-107); CHOLESTEROL LEVEL 223 MG/DL (<200); CHOLESTEROL RISK RATIO 3.08 (<5); CREATININE FOR GFR 0.63 MG/DL (0.55-1.30); GLOMERULAR FILTRATION RATE > 60.0 (>51); GLUCOSE, FASTING 91 MG/DL (60-100); HDL CHOLESTEROL 72.2 MG/DL (>40); LDL CHOLESTEROL 136.4 MG/DL (<100); NON-HDL-C 151 MG/DL; POTASSIUM SERUM 4.5 MMOL/L (3.5-5.1); SODIUM LEVEL 140 MMOL/L (136-145); TOTAL PROTEIN 6.5 G/DL (5.7-8.2); TRIGLYCERIDES LEVEL 72 MG/DL (<150)
[2022-08-14 09:55] LABS: THYROID STIMULATING HORMONE 0.797 uIU/ML (0.55-4.78)
[2022-08-14 09:59] LABS: ERYTHROCYTE SEDIMENTATION RATE 12 mm/hr (0-30)
== END ==
LOC: M RAD 08:05
PROVIDERS: ATTEND Family Medicine
DX: K59.00 Constipation, unspecified (principal); E78.00 Pure hypercholesterolemia, unspecified